=== PATIENT | female | born 1970 | race African-American/Black ===

== ENCOUNTER 2022-06-15 16:24 | Outpatient (CLI) | payer BC ==
[2022-06-15 16:51] LABS: Hemoglobin 12.5 g/dL (12.0-15.5); Mean Corpuscular HGB CONC 32.1 g/dL (32.0-36.0); Mean Corpuscular Hemoglobin 27.3 pg (27.0-33.0); Mean Corpuscular Volume 84.9 fl (81.6-98.3); Mean Platelet Volume 10.1 fl (7.4-10.4); Platelet Count 314 10x3/uL (150-450); RBC Distribution Width 14.4 % (11.5-14.5); Red Blood Cell (RBC) Count 4.58 10x6/uL (3.90-5.03); White Blood Cell (WBC) Count 7.6 10x3/uL (3.5-10.5)
== END 2022-06-15 16:25 | disposition home or self-care (01) ==
LOC: CSHLAB 16:24
PROVIDERS: ATTEND Podiatrist
DX: Z01.812 Encounter for preprocedural laboratory examination (principal); Z20.822 Contact with and (suspected) exposure to COVID-19; M20.5X2 Other deformities of toe(s) (acquired), left foot
CPT/HCPCS: 85027; 87811

== ENCOUNTER 2022-06-17 10:03 | Day surgery (SDC) | payer BC ==
[2022-06-15 14:57] VITALS: BMI 36.9
[2022-06-17] MEDS ORDERED: Fentanyl 100 MCG/2 ML VIAL ONE (11:29)
[2022-06-17] MEDS ORDERED: Lidocaine 1% PF 5 ML VIAL ONE (11:29)
[2022-06-17] MEDS ORDERED: PROPOFOL 20 ML ONE (11:29)
[2022-06-17] MEDS ORDERED: Dexamethasone 4 mg/ml Vial ONE (11:34)
[2022-06-17] MEDS ORDERED: Ondansetron PF 4 MG/2 ML Vial ONE (11:34)
[2022-06-17] MEDS ORDERED: Neomycin-Polymyxin 1 ML AMP ONE (11:55)
[2022-06-17] MEDS ORDERED: CEFAZOLIN 2 GM VIAL ONE (12:02)
[2022-06-17] MEDS ORDERED: Bupivacaine PF 0.5% 30 ML VIAL ONE (12:17)
[2022-06-17] MEDS ORDERED: Ketorolac Tromethamine 30 MG/ML VIAL ONE (12:53)
== END 2022-06-17 14:00 | disposition home or self-care (01) ==
LOC: CSHSDC 10:03
PROVIDERS: ATTEND Podiatrist
PROC: 0SRQ0JZ Replacement of Left Toe Phalangeal Joint with Synthetic Substitute, Open Approach (ICD-10-PCS; principal; 2022-06-17)
DX: M20.42 Other hammer toe(s) (acquired), left foot (principal); I10 Essential (primary) hypertension; K21.9 Gastro-esophageal reflux disease without esophagitis; Z20.822 Contact with and (suspected) exposure to COVID-19; Z79.84 Long term (current) use of oral hypoglycemic drugs; Z79.899 Other long term (current) drug therapy; Z88.8 Allergy status to other drugs, medicaments and biological substances
CPT/HCPCS: J0690; J1100; J1885; J2405; J2704; J3010; S0020